=== PATIENT | female | born 1955 | race Asian ===

== ENCOUNTER 2025-08-09 19:54 | Emergency (ER) | payer MEDICARE, OTHER, SELFPAY ==
[2025-08-09 19:55] VITALS: BP 125/50; PULSE 57; RESP 18; TEMP 36.1; O2SAT 98; BMI 31.6
--- NOTE | 2025-08-09 20:35 | CT_ITS ---
PROCEDURE: BRAIN/HEAD WITHOUT CONTRAST 08/09/2025 REASON FOR EXAM: HEAD TRAUMA ON XARELTO TECHNIQUE: Procedure Code: CTBR Modality: CT Procedure: BRAIN/HEAD WITHOUT CONTRAST Coronal and Sagittal reconstruction series were provided. One or more dose reduction techniques were used (e.g., Automated exposure control, adjustment of the mA and/or kV according to patient size, use of iterative reconstruction technique. RADIATION DOSE SUMMARY: DLP: 772.22 mGycm COMPARISON: None available. FINDINGS: No acute hemorrhage. No acute infarct. No significant mass effect or brain herniation. The ventricular system and sulci/fissures are within normal limits of size and configuration for the patient's stated age. No extra-axial fluid collection. The basal cisterns are patent. The mastoid air cells are clear. The paranasal sinuses are predominantly clear. The calvarium appears intact. Atherosclerotic calcification of the carotid siphons and intradural vertebral arteries. CT/Brain/Head without Contrast IMPRESSION: No CT evidence of acute intracranial hemorrhage, infarct, or significant mass e ffect. Reading Location: [id number]
--- NOTE | 2025-08-09 20:36 | ED.VIS.FALL ---
HPI HPI - Fall History of Present Illness Chief Complaint: Fall Detail of Chief Complaint: Hit the right side of her head on Xarelto. Informant: patient and family (Accompanied by her daughter.) Occured/Mechanism Occurred: Today Mechanism/Context: Yes same level fall and Yes trip Usually ambulates: Without assistance Pain/Injury Pain Location: head Quality of Pain: Dull Current Severity: Mild Maximum Severity: Mild Associated Symptoms Associated Symptoms: Negative for Parasthesias, Weakness, Loss of function, Inability to ambulate, Loss of consciousness or Amnesia Narrative Narrative: 70-year-old female history of A-fib on Xarelto, diabetes and hypertension. Was walking at home stepped over a box kind lost her balance and fell to the ground in her right side of her head on the wall than the ground. No LOC. This occurred about an hour ago. Denies any severe headache. Prior similar symptoms: No Recent Illness/Hospitalization: No PFSH PFSH Medical History Irregular heart beat Afib High cholesterol Diabetes HTN (hypertension) Allergy/AdvReac Type Severity Reaction Status Date / Time sulfamethoxazole (From Allergy Rash Verified 08/09/25 19:57 ) trimethoprim (From ) Allergy Rash Verified 08/09/25 19:57 Social History housing: house Smoking Status: Never smoker ROS ROS ED ROS Narrative Denies recent illness. Constitutional Constitutional ED: Denies chills or fever(s) Eyes Eyes: Denies blurry vision ENT ENT ED: Denies ear pain Cardiovascular Cardiovascular: Denies chest pain Respiratory/Chest Respiratory/Chest: Denies cough or dyspnea Gastrointestinal Gastrointestinal: Denies abdominal pain, diarrhea, nausea or vomiting Genitourinary Genitourinary ED: Denies dysuria or hematuria Musculoskeletal Musculoskeletal: Denies arthralgias or back pain Integumentary Denies abscess Neurologic Neurologic: Denies headache(s) Psychiatric Psychiatric: Denies anxiety Endocrine Endocrinology: Denies polydipsia Hematologic/Lymphatic Hematologic/Lymphatic: Reports other Details: On the blood thinner Xarelto. ; Denies lymphadenopathy Allergic/Immunologic Allergic/Immunologic ED: Denies mouth swelling, tongue swelling or urticaria EXAM Physical Exam Narrative Exam Narrative: 70-year-old female vital signs stable afebrile no acute distress. H EENT exam pupils round react light. Moist mucous membranes. She has mild tenderness to her right side of her head. There is minimal swelling. No laceration. Minimally tender. Extraocular motions are intact. Normal speech. No dental injury. Posterior scalp is nontender no hematoma. C-spine and neck are nontender. Back is nontender. Lungs clear to auscultation bilaterally. Heart rate about 60 no murmur. Chest wall ribs are nontender. Abdomen soft nontender. No peritoneal signs. Pelvic girdle intact. Moving all 4 extremities. Normal development engineer strength. Normal range of motion both upper extremities. Nontender no deformity. She has normal flexion extension of both hips knees and ankles. Normal dorsi plantarflexion intact. Nontender no deformity. Neurologically she is awake alert. Answering questions following commands. GCS of 15. Const Vital Signs: 08/09/25 19:55 08/09/25 20:20 Temperature 97 F L Temperature Source Temporal Pulse Rate 57 L Respiratory Rate 18 Respiratory Effort Normal Non-Labored Respiratory Depth Normal Respiratory Pattern Normal Blood Pressure 125/50 H Blood Pressure Mean 75 Pulse Ox 98 Oxygen Delivery Method Room Air Room Air MDM MDM MDM Narrative Medical decision making narrative: 70-year-old female history of A-fib on Xarelto tripped over a box fell hit the right side of her head. Has a small contusion. CT will be obtained. Otherwise has a benign exam was feeling fine and only she needs any lab work. She does not want a thing for pain nor she having much of a headache. Repeat exam around 9:10 PM. Patient is doing well. Went over her CAT scan result which showed no signs of a bleed. She will be discharged to home. Hold her Xarelto for 24 hours. Given head injury instructions and when to return. Patient is comfortable with the plan. As his family. History & Record Review Discussion w/independent historian: Patient and Family Additional record(s) reviewed:: No prior records Radiography Diagnostic Testing: Clinical Impression(s) from Imaging Studies Brain CT 08/09/25 20:35 IMPRESSION: No CT evidence of acute intracranial hemorrhage, infarct, or significant mass effect. Reading Location: [facility] Discharge Plan Triage Chief Complaint: Fall Other Complaint: Head Injury ED Provider: Jaskaran Noyola Dx/Rx/DC Orders Clinical Impression: Fall, Closed head injury, History of atrial fibrillation, Chronic anticoagulation Instructions: ED Head Injury (Adult) Primary Care Provider: Juanito Pond,Out of Referrals: Juanito Pond,Out of [Primary Care Provider, Medical] - As Needed Activity Restrictions/Additional Instructions: Tylenol for pain. Ice to your scalp. Hold your Xarelto for 24 hours and you can restart it. Return if severe headache. Vomiting or not acting herself. Your CAT scan tonight look good. Print Language: Telugu Disposition Disposition: Home, Self Care
--- OUTSIDE RECORDS SUMMARY | 2025-08-09 20:53 | XMS RPT_ITS | CCD ---
Author Organization [facility] Care Team Providers Care Chief Lifestyle Officer Name Role Phone Unavailable Primary Care Provider Unavailabl e Allergies Allergy Classification Reported Allergen(s) Allergy Type Date of Onset Reaction(s) Facility (1 source) Sulfamethoxazole / Trimethoprim Drug Allergy 2 Rash [facility] Work Phone: Medications Current Medications Medication Drug Class(es) Dates Sig (Normalized) Sig (Original) amoxicillin 875 mg oral tablet (1 source) Penicillin-class Antibacterial Start: 07-28-2022 End: 08-04-2022 take 1 tablet by mouth twice daily amoxicillin (AMOXIL) 875 mg tablet Take 1 tablet by mouth twice daily for 7 days. 14 tablet 0 07/28/2022 08/04/2022 Active Comment on above: Take 1 tablet by carmelo th twice daily for 7 days. cetirizine hydrochloride 10 mg oral tablet (1 source) Histamine-1 Receptor Antagonist Start: 09-03-2021 End: 09-04-2022 cetirizine (ZYRTEC) 10 mg tablet Take 10 mg by mouth. 0 09/03/2021 09/04/2022 Active Comment on above: Take 10 mg by mouth. Completed/Discontinued Medications Medication Drug Class(es) Dates Sig (Normalized) Sig (Original) amLODIPine 10 mg oral tablet (1 source) Dihydropyridine Calcium Channel Elana Start: 05-26-2012 amLODIPine (NORVASC) 10 mg tablet Take 10 mg by mouth. 0 05/26/2012 Active Comment on above: Take 10 mg by mouth. atorvastatin 10 mg oral tablet (1 source) HMG-CoA Reductase Inhibitor Start: 05-26-2012 take 1 tablet by mouth once daily atorvastatin (LIPITOR) 10 mg tablet Take 1 tablet by mouth once daily. 0 05/26/2012 Active Comment on above: Take 1 tablet by carmelo th once daily. 0.5 ml dulaglutide 3 mg/ml auto-injector (1 source) GLP-1 Receptor Agonist Start: 06-02-2022 inject 5 mg by subcutaneous injection every week dulaglutide (TRULICITY) 1.5 mg/0.5 mL pen injector Sig 1. 5 mg SQ a week. 0 06/02/2022 Active Comment on above: Sig 1. 5 mg SQ a wee k. estradiol 0.1 mg/ml vaginal cream (1 source) Estrogen Start: 05-26-2012 estradiol (ESTRACE) 0.01 % (0.1 mg/gram) vaginal cream Use 1 g vaginally. 0 05/26/2012 Active Comment on above: Use 1 g vaginally. famotidine 40 mg oral tablet (1 source) Histamine-2 Receptor Antagonist Start: 03-26-2021 famotidine (PEPCID) 40 mg tablet Take 40 mg by mouth. 0 03/26/2021 Active Comment on above: Take 40 mg by mouth. FLUoxetine 10 mg oral capsule (1 source) Serotonin Reuptake Inhibitor Start: 04-16-2022 FLUoxetine (PROZAC) 10 mg capsule Take 10 mg by mouth. 0 04/16/2022 Active Comment on above: Take 10 mg by mouth. Problems Problem Classification Problem Date Documented Da te Episodic/Chronic Otitis media and related conditions (1 source) Acute left otitis media; Translations: [Otitis media, unspecified, left ear] Episodic Results Test Name Value Interpretation Reference Range Meche metzger Louann 07-28-2022 CNOV Office Visit (UCTR ) CHANDRIKA GAFFNEY ([id number]) 1955 F Date Time Provider Department 07/28/22 11:45 AM CORNELIA VELASQUEZ [facility] During your visit today, we recorded the following information about you: Temperature Pulse Respiration Blood pressure 98.1 degrees 66/minute 16/minute 118/68 Weight 87.1 kg Cornelia Velasquez APRN.CNP 07/28/2022 11:55 AM Signed Subjective HPI Nontoxic-appearing female presents urgent care chief complaint left ear pain. Duration of symptoms 3 days. Associated symptoms nasal congestion and cough. Nasal congestion cough appears to be improving. Left ear pain has worsened. Presents today for evaluation. No OTC medication use today. Has been using oil drops for ear this is helped for short amount of time. Denies any significant pain. No hearing difficulties or otorrhea. No ear trauma. No recent ear infections. Denies any fever body aches chills productive cough chest pain shortness of breath pleuritic pain hemoptysis nausea vomiting abdominal pain change in bowel or bladder habits. Past medical history prescription medication use and allergies reviewed. .Patient presents with: Ear Pain: left x 3 day, congestion x 5 days History reviewed. No pertinent past medical history. History reviewed. No pertinent surgical history. ALLERGIES Sulfamethoxazole-Trime thoprim MEDICATIONS amLODIPine (NORVASC) 10 mg tablet Take 10 mg by mouth. atorvastatin (LIPITOR) 10 mg tablet Take 1 tablet by mouth once daily. cetirizine (ZYRTEC) 10 mg tablet Take 10 mg by mouth. dulaglutide (TRULICITY) 1.5 mg/0.5 mL pen injector Sig 1. 5 mg SQ a week. estradiol (ESTRACE) 0.01 % (0.1 mg/gram) vaginal cream Use 1 g vaginally. famotidine (PEPCID) 40 mg tablet Take 40 mg by mouth. FLUoxetine (PROZAC) 10 mg capsule Take 10 mg by mouth. History reviewed. No pertinent family history. Social History Tobacco Use Smoking status: Never Passive exposure: Never Smokeless tobacco: Never BP 118/68 Pulse 66 Temp 36.7 ?C (98.1 ?F) Resp 16 Wt 87.1 kg (192 lb) SpO2 99% Review of Systems Constitutional: Negative for chills, fever and malaise/fatigue. HENT: Positive for congestion, ear pain and sore throat. Negative for ear discharge and sinus pain. Eyes: Negative for blurred vision, pain, discharge and redness. Respiratory: Positive for cough. Negative for hemoptysis, sputum production, shortness of breath, wheezing and stridor. Cardiovascular: Negative for chest pain. Gastrointestinal: Negative for abdominal pain, diarrhea, nausea and vomiting. Musculoskeletal: Negative for myalgias. Skin: Negative for itching and rash. Neurological: Negative for dizziness and headaches. Objective Physical Exam Constitutional: General: She is not in acute distress. Appearance: She is not diaphoretic. HENT: Head: Normocephalic. Jaw: No trismus or tenderness. Right Ear: Hearing, tympanic membrane, ear canal and external ear normal. No mastoid tenderness. Left Ear: Hearing, ear canal and external ear normal. No mastoid tenderness. Tympanic membrane is erythematous and bulging. Nose: Congestion present. Mouth/Throat: Mouth: Mucous membranes are moist. Pharynx: Oropharynx is clear. No oropharyngeal exudate or posterior oropharyngeal erythema. Eyes: Conjunctiva/sclera: Conjunctivae normal. Pupils: Pupils are equal, round, and reactive to light. Cardiovascular: Rate and Rhythm: Normal rate and regular rhythm. Heart sounds: Normal heart sounds. Pulmonary: Effort: Pulmonary effort is normal. No tachypnea, accessory muscle usage or respiratory distress. Breath sounds: Normal breath sounds. No stridor. No wheezing, rhonchi or rales. Abdominal: Palpations: Abdomen is soft. Tenderness: There is no abdominal tenderness. Musculoskeletal: Cervical back: Normal range of motion and neck supple. No rigidity or tenderness. Lymphadenopathy: Cervical: No cervical adenopathy. Skin: General: Skin is warm and dry. Neurological: Mental Status: She is alert and oriented to person, place, and time. ASSESSMENT/PLAN: 1. Acute otitis media, left - ICD9: 382.9, ICD10: H66.92 Patient diagnosed with otitis media of left ear. Placed on amoxicillin. Creatinine clearance 66. Patient was educated on supportive therapies. Patient will follow up with primary care provider as needed. Patient was instructed to immediately proceed to emergency room for any new, worsening, or symptoms lasting longer than anticipated. The patient's clinical presentation is otherwise unremarkable at this time. Based on exam and clinical finding, the patient is stable for discharge. Plan of care was discussed with patient. Patient verbalizes understanding and agrees to plan of care. This note was generated using [employer] software. It may contain errors in wording, punctuation, or spelling. Cornelia Josue (more content not included)... Normal [facility] Vital Signs Date Time Vital Sign Value Performing Clinician Wolfgang saeed 07-28-2022 11:28-0500 Body temperature 98.1 [degF] Cornelia Velasquez ORTHOPEDICS PEDIATRIC PHYSICIAN.HOME APPLIANCES MECHANIC Work Phone: [facility] 07-28-2022 11:28-0500 Body weight 87.09 kg Cornelia Velasquez ORTHOPEDICS PEDIATRIC PHYSICIAN.HOME APPLIANCES MECHANIC Work Phone: [facility] 07-28-2022 11:28-0500 Diastolic blood pressure 68 mm[Hg] Cornelia Velasquez ORTHOPEDICS PEDIATRIC PHYSICIAN.HOME APPLIANCES MECHANIC Work Phone: [facility] 07-28-2022 11:28-0500 Heart rate 66 /min Cornelia Velasquez ORTHOPEDICS PEDIATRIC PHYSICIAN.HOME APPLIANCES MECHANIC Work Phone: [facility] 07-28-2022 11:28-0500 Respiratory rate 16 /min Cornelia Velasquez ORTHOPEDICS PEDIATRIC PHYSICIAN.HOME APPLIANCES MECHANIC Work Phone: [facility] 07-28-2022 11:28-0500 SaO2% (BldA) [Mass fraction] 99 % Cornelia Velasquez ORTHOPEDICS PEDIATRIC PHYSICIAN.HOME APPLIANCES MECHANIC Work Phone: [facility] 07-28-2022 11:28-0500 Systolic blood pressure 118 mm[Hg] Cornelia Velasquez ORTHOPEDICS PEDIATRIC PHYSICIAN.HOME APPLIANCES MECHANIC Work Phone: [facility] Encounters Encounter Date Encounter Type Care Provider Facility Start: 07-28-2022 End: 07-28-2022 ambulatory Facility:[facility] Start: 07-28-2022 End: 07-28-2022 Patient encounter procedure Cornelia Velasquez ORTHOPEDICS PEDIATRIC PHYSICIAN.HOME APPLIANCES MECHANIC Work Phone: [facility] Comment on above: Acute otitis media, left (Primary Dx) Plan of Treatment Date Care Activity Detail Author Start: 02-18-2027 LIPID SCREEN LIPID SCREEN [facility] Start: 04-16-2022 Influenza vaccination INFLUENZA (#1) [facility] Start: 08-27-2021 COVID-19 VACCINE (4 - Booster for Pfizer series) COVID-19 VACCINE (4 - Booster for Pfizer series) [facility] Start: 08-16-2021 ADVANCE DIRECTIVE DISCUSSION ADVANCE DIRECTIVE DISCUSSION [facility] Start: 08-16-2021 DEPRESSION ASSESSMENT DEPRESSION ASS ESSMENT [facility] Start: 2018 BONE DENSITY BONE DENSITY [facility] Start: 2018 PNEUMOCOCCAL: 65+ (1 - PCV) PNEUMOCOCCAL: 65+ (1 - PCV) [facility] Start: 2003 SHINGRIX VACCINE (1 of 2) SHINGRIX V ACCINE (1 of 2) [facility] Start: 1998 COLOGUARD (FIT-DNA) COLOGUARD (FIT-D NA) [facility] Start: 1998 Colonoscopy COLONOSCOPY [facility] Start: 1998 COLORECTAL CANCER SCREENING COLORECTAL CANCER SCREENING [facility] Start: [address] COLONOGRAPHY [facility] Start: 1998 DIABETES SCREEN DIABETES SCREEN [facility] Start: 1998 FECAL OCCULT BLOOD FECAL OCCULT BLOO D [facility] Start: 1998 SIGMOIDOSCOPY SIGMOIDOSCOPY [facility] Start: 1993 Mammography MAMMOGRAM [facility] Start: 1972 Urine microalbumin profile DTAP,TDAP ,TD (1 - Tdap) [facility] Start: 1971 HEPATITIS C SCREENING HEPATITIS C SD CYRUS [facility] Payers Date Payer Category Payer [employer] ( and others) [id number] 2021 Unknown FOR LIFE [id number] 2021-Present [phone] [address] [place] [address] Indemnity [id number] 2018 Medicare MEDICARE MEDICAR E A AND B [id number] 2018-Present [phone] [address] [address] [place] [address] Medicare [id number] 2018 Medicare [id number] Social History Date Type Detail Facility Start: 07-28-2022 Tobacco smoking status NHIS Never smoked tobacco [facility] Work Phone: Start: 07-28-2022 Tobacco use and exposure Smokeless tobacco non-user [facility] Work Phone: Start: 1955 Sex Assigned At Not on file [facility] NEGATED: Highlighted rowStart: RONALDF History of tobacco use Passive smoker [facility] Work Phone: Progress note 07-28-2022 Note Date & Type Note Facility 07-28-2022 Note HNO ID: [id number] Author: Cornelia Velasquez APRN.HOME APPLIANCES MECHANIC Service: ? Author Type: Nurse Practitioner Type: Progress Notes Filed: 07/28/2022 11:55 AM Note Text: Subjective HPI Nontoxic-appearing female presents urgent care chief complaint left ear pain. Duration of symptoms 3 days. Associated symptoms nasal congestion and cough. Nasal congestion cough appears to be improving. Left ear pain has worsened. Presents today for evaluation. No OTC medication use today. Has been using oil drops for ear this is helped for short amount of time. Denies any significant pain. No hearing difficulties or otorrhea. No ear trauma. No recent ear infections. Denies any fever body aches chills productive cough chest pain shortness of breath pleuritic pain hemoptysis nausea vomiting abdominal pain change in bowel or bladder habits. Past medical history prescription medication use and allergies reviewed. .Patient presents with: Ear Pain: left x 3 day, congestion x 5 days History reviewed. No pertinent past medical history. History reviewed. No pertinent surgical history. ALLERGIES Sulfamethoxazole-Trimethoprim MEDICATIONS amLODIPine (NORVASC) 10 mg tablet Take 10 mg by mouth. atorvastatin (LIPITOR) 10 mg tablet Take 1 tablet by mouth once daily. cetirizine (ZYRTEC) 10 mg tablet Take 10 mg by mouth. dulaglutide (TRULICITY) 1.5 mg/0.5 mL pen injector Sig 1. 5 mg SQ a week. estradiol (ESTRACE) 0.01 % (0.1 mg/gram) vaginal cream Use 1 g vaginally. famotidine (PEPCID) 40 mg tablet Take 40 mg by mouth. FLUoxetine (PROZAC) 10 mg capsule Take 10 mg by mouth. History reviewed. No pertinent family history. Social History Tobacco Use Smoking status: Never Passive exposure: Never Smokeless tobacco: Never BP 118/68 Pulse 66 Temp 36.7 ?C (98.1 ?F) Resp 16 Wt 87.1 kg (192 lb) SpO2 99% Review of Systems Constitutional: Negative for chills, fever and malaise/fatigue. HENT: Positive for congestion, ear pain and sore throat. Negative for ear discharge and sinus pain. Eyes: Negative for blurred vision, pain, discharge and redness. Respiratory: Positive for cough. Negative for hemoptysis, sputum production, shortness of breath, wheezing and stridor. Cardiovascular: Negative for chest pain. Gastrointestinal: Negative for abdominal pain, diarrhea, nausea and vomiting. Musculoskeletal: Negative for myalgias. Skin: Negative for itching and rash. Neurological: Negative for dizziness and headaches. Objective Physical Exam Constitutional: General: She is not in acute distress. Appearance: She is not diaphoretic. HENT: Head: Normocephalic. Jaw: No trismus or tenderness. Right Ear: Hearing, tympanic membrane, ear canal and external ear normal. No mastoid tenderness. Left Ear: Hearing, ear canal and external ear normal. No mastoid tenderness. Tympanic membrane is erythematous and bulging. Nose: Congestion present. Mouth/Throat: Mouth: Mucous membranes are moist. Pharynx: Oropharynx is clear. No oropharyngeal exudate or posterior oropharyngeal erythema. Eyes: Conjunctiva/sclera: Conjunctivae normal. Pupils: Pupils are equal, round, and reactive to light. Cardiovascular: Rate and Rhythm: Normal rate and regular rhythm. Heart sounds: Normal heart sounds. Pulmonary: Effort: Pulmonary effort is normal. No tachypnea, accessory muscle usage or respiratory distress. Breath sounds: Normal breath sounds. No stridor. No wheezing, rhonchi or rales. Abdominal: Palpations: Abdomen is soft. Tenderness: There is no abdominal tenderness. Musculoskeletal: Cervical back: Normal range of motion and neck supple. No rigidity or tenderness. Lymphadenopathy: Cervical: No cervical adenopathy. Skin: General: Skin is warm and dry. Neurological: Mental Status: She is alert and oriented to person, place, and time. ASSESSMENT/PLAN: 1. Acute otitis media, left - ICD9: 382.9, ICD10: H66.92 Patient diagnosed with otitis media of left ear. Placed on amoxicillin. Creatinine clearance 66. Patient was educated on supportive therapies. Patient will follow up with primary care provider as needed. Patient was instructed to immediately proceed to emergency room for any new, worsening, or symptoms lasting longer than anticipated. The patient's clinical presentation is otherwise unremarkable at this time. Based on exam and clinical finding, the patient is stable for discharge. Plan of care was discussed with patient. Patient verbalizes understanding and agrees to plan of care. This note was generated using [employer] software. It may contain errors in wording, punctuation, or spelling. Cornelia Velasquez APRN.TONG [facility] History of Present illness Narrative 07-28-2022 Cornelia Velasquez APRN.TONG - 07/28/2022 11:33 AM EST Note Date & Type Note Facility 07-28-2022 History of Presen t illness Narrative Subjective HPI Nontoxic-appearing female presents urgent care chief complaint left ear pain. Duration of symptoms 3 days. Associated symptoms nasal congestion and cough. Nasal congestion cough appears to be improving. Left ear pain has worsened. Presents today for evaluation. No OTC medication use today. Has been using oil drops for ear this is helped for short amount of time. Denies any significant pain. No hearing difficulties or otorrhea. No ear trauma. No recent ear infections. Denies any fever body aches chills productive cough chest pain shortness of breath pleuritic pain hemoptysis nausea vomiting abdominal pain change in bowel or bladder habits. Past medical history prescription medication use and allergies reviewed. .Patient presents with: Ear Pain: left x 3 day, congestion x 5 days History reviewed. No pertinent past medical history. History reviewed. No pertinent surgical history. ALLERGIES Sulfamethoxazole-Trimethoprim MEDICATIONS amLODIPine (NORVASC) 10 mg tablet Take 10 mg by mouth. atorvastatin (LIPITOR) 10 mg tablet Take 1 tablet by mouth once daily. cetirizine (ZYRTEC) 10 mg tablet Take 10 mg by mouth. dulaglutide (TRULICITY) 1.5 mg/0.5 mL pen injector Sig 1. 5 mg SQ a week. estradiol (ESTRACE) 0.01 % (0.1 mg/gram) vaginal cream Use 1 g vaginally. famotidine (PEPCID) 40 mg tablet Take 40 mg by mouth. FLUoxetine (PROZAC) 10 mg capsule Take 10 mg by mouth. History reviewed. No pertinent family history. Social History Tobacco Use Smoking status: Never Passive exposure: Never Smokeless tobacco: Never BP 118/68 Pulse 66 Temp 36.7 C (98.1 F) Resp 16 Wt 87.1 kg (192 lb) SpO2 99% Review of Systems Constitutional: Negative for chills, fever and malaise/fatigue. HENT: Positive for congestion, ear pain and sore throat. Negative for ear discharge and sinus pain. Eyes: Negative for blurred vision, pain, discharge and redness. Respiratory: Positive for cough. Negative for hemoptysis, sputum production, shortness of breath, wheezing and stridor. Cardiovascular: Negative for chest pain. Gastrointestinal: Negative for abdominal pain, diarrhea, nausea and vomiting. Musculoskeletal: Negative for myalgias. Skin: Negative for itching and rash. Neurological: Negative for dizziness and headaches. Objective Physical Exam Constitutional: General: She is not in acute distress. Appearance: She is not diaphoretic. HENT: Head: Normocephalic. Jaw: No trismus or tenderness. Right Ear: Hearing, tympanic membrane, ear canal and external ear normal. No mastoid tenderness. Left Ear: Hearing, ear canal and external ear normal. No mastoid tenderness. Tympanic membrane is erythematous and bulging. Nose: Congestion present. Mouth/Throat: Mouth: Mucous membranes are moist. Pharynx: Oropharynx is clear. No oropharyngeal exudate or posterior oropharyngeal erythema. Eyes: Conjunctiva/sclera: Conjunctivae normal. Pupils: Pupils are equal, round, and reactive to light. Cardiovascular: Rate and Rhythm: Normal rate and regular rhythm. Heart sounds: Normal heart sounds. Pulmonary: Effort: Pulmonary effort is normal. No tachypnea, accessory muscle usage or respiratory distress. Breath sounds: Normal breath sounds. No stridor. No wheezing, rhonchi or rales. Abdominal: Palpations: Abdomen is soft. Tenderness: There is no abdominal tenderness. Musculoskeletal: Cervical back: Normal range of motion and neck supple. No rigidity or tenderness. Lymphadenopathy: Cervical: No cervical adenopathy. Skin: General: Skin is warm and dry. Neurological: Mental Status: She is alert and oriented to person, place, and time. ASSESSMENT/PLAN: 1. Acute otitis media, left - ICD9: 382.9, ICD10: H66.92 Patient diagnosed with otitis media of left ear. Placed on amoxicillin. Creatinine clearance 66. Patient was educated on supportive therapies. Patient will follow up with primary care provider as needed. Patient was instructed to immediately proceed to emergency room for any new, worsening, or symptoms lasting longer than anticipated. The patient's clinical presentation is otherwise unremarkable at this time. Based on exam and clinical finding, the patient is stable for discharge. Plan of care was discussed with patient. Patient verbalizes understanding and agrees to plan of care. This note was generated using [employer] software. It may contain errors in wording, punctuation, or spelling. Cornelia Velasquez APRN.TONG documented in this encounter [facility] Evaluation note Note Date & Type Note Facility Evaluation note Diagnosis Acute otitis media, left- Primary Unspecified otitis media documented in this encounter [facility] Summary Purpose Family History No Family History Records Found Advance Directives No Advanced Directives Records Found Additional Source Comments Source Comments (unrecognize d section and content) In the event this informatio n is protected by the Federal Confidentiality of Alcohol and Drug Abuse Patient Records regulations: The Federal rules restrict any use of the information to criminally investigate or prosecute any alcohol or drug abuse patient.[facility] Reason for Visit (unrecogniz ed section and content) Reason Comments Ear Pain left x 3 day, conges tion x 5 days INFORMATION SOURCE (unrecogn ized section and content) DATE CREATED AUTHOR 07/29/2022 [facility] FOR RECORDS PERTAINING TO PATIENTS WHO ARE OR HAVE BEEN ENROLLED IN A CHEMICAL DEPENDENCY/SUBSTANCEABUSE PROGRAM, SOME INFORMATION MAY BE OMITTED. This clinical summary was aggregated from multiple sources. Caution should be exercised in using it in the provision of clinical care. This summary normalizes information from multiple sources, and as a consequence, information in this document may materially change the coding, format and clinical context of patient data. In addition, data may be omitted in some cases. CLINICAL DECISIONS SHOULD BE BASED ON THE PRIMARY CLINICAL RECORDS. [facility] [employer] [facility]. provides no warranty or guarantee of the accuracy or completeness of information in this document.
[2025-08-09 21:18] VITALS: BP 125/50; PULSE 57; RESP 18; TEMP 36.1; O2SAT 98
== END 2025-08-09 21:18 | disposition home or self-care (01) ==
PROVIDERS: Emergency Provider Emergency Medicine; Visit Provider Emergency Medicine
DX: S09.90XA Unspecified injury of head, initial encounter (principal); I48.91 Unspecified atrial fibrillation; E11.9 Type 2 diabetes mellitus without complications; E78.00 Pure hypercholesterolemia, unspecified; I10 Essential (primary) hypertension; Z79.01 Long term (current) use of anticoagulants; W01.0XXA Fall on same level from slipping, tripping and stumbling without subsequent striking against object, initial encounter
CPT/HCPCS: 70450; 99282